=== PATIENT | female | born 1995 | race Caucasian/White ===

== ENCOUNTER 2017-05-11 07:00 | Emergency (ER) | payer OTHER ==
[~2017-05-11] VITALS: Ht 165.1 cm; Wt 85.9 kg
[2017-05-11 07:04] VITALS: BP 143/87; PULSE 90; RESP 18; O2SAT 97
--- NOTE | 2017-05-11 07:06 | ED.REPORT ---
HPI-Allergic Reaction Date of Service May 11, 2017 ED Provider: Dr. Malik Perez MD A 21 year old female presents to the ED with a diffuse urticarial rash that first appeared 3 months ago. Her itchiness and discomfort have been persistent since onset. Affected areas include chest, back, upper and lower extremities. She denies any previous episodes of hives or known allergies. She is also complaining of milky drainage from her left breast that began approx. 1 month ago. She denies redness or swelling in the left breast. Patient has taken Zyrtec and 2 tabs of Benadryl with little relief. Patient denies any dyspnea, tongue swelling, nausea, vomiting, fever or chills. She denies any new exposure to animals. Nursing Notes Stated Complaint: HIVES Chief Complaint: General Complaint Nursing Notes Reviewed: Yes ([employer], [employer] not reconciled) Allergies: Coded Allergies: No Known Allergies (Unverified , 05/11/17) Scheduled Prednisone (PredniSONE) 20 Mg Tablet 40 MG PO DAILY Ranitidine (Ranitidine) 150 Mg Capsule 150 MG PO DAILY General Time Seen by MD: 07:05 Chief Complaint Rash Hx Obtained From: Patient Arrived By: Walk-in Onset Occurred: More than a week ago... (3 months) Symptom Duration: Since onset Progression Since Onset: Constant Location: : Abdomen: Arm left: Arm right: Chest: Leg left: Leg right Quality: Itching Severity: Current: Mild Severity: Maximum: Moderate Associated with: Reports: Itching generalized, Rash/redness all over, Welts/ hives, Denies: Lips swollen, Nausea, Tongue swollen, Vomiting Pertinent Negative: Pt denies other symptoms Recent Healthcare: No recent hospitalization, Recent doctor visit Similar Sx Previous: No Past Medical History Past Medical History None reported. Past Surgical History None reported. Smoking History Current Every Day Smoker Social History Other Social History: Good social support, Local resident Ambulatory Status Independent Review of Systems + milky L breast discharge Constitutional: Denies: Chills, Fever Ears / Nose / Throat: Denies: Tongue swelling Respiratory: Denies: Shortness of breath GI: Denies: Nausea, Vomiting Skin: Reports Itching, Reports Rash Allergy / Immune: Reports: Hives, Itching Complete sys rev & neg: except as marked. Physical Exam Initial Vital Signs Vital Signs (First) Date Time Temp Pulse Resp B/P Pulse Ox O2 Delivery O2 Flow Rate FiO2 05/11/17 07:04 36.6 90 18 143/87 97 Room Air Initial VS: Reviewed Neck: Supple, Non-tender, Full range of motion Extremities: Vascular intact, Neuro intact, No swelling, No tenderness Neurologic: Alert, Oriented, Nonfocal Psychiatric: Mood/affect normal, Behavior normal, Normal thought content General/Constitutional: Awake, Alert, No acute distress Respiratory / Chest: Atraumatic, Breath sounds NL, Breath sounds = bilat, No respiratory distress RESPIRATORY: No active signs of anaphylaxis Cardiovascular: Heart rate NL, Regular rhythm, Heart sounds NL Skin: Atraumatic, Warm, Dry Color / Condition: Positive: Rash present Rash / Lesion Location: Positive: Generalized Rash / Lesion Pattern: Positive: Urticarial Head / Eyes: Atraumatic, Normocephalic, PERRL ENT: Atraumatic, Airway patent, Mucous membranes moist, Pharynx NL Mouth: Negative: Angioedema present..., Lip swelling present, Tongue abnormal Abdomen: Atraumatic, Soft Interpretation & Diagnostics Lab Results Interpretation Result Diagram: 05/11/17 0735 05/11/17 0735 Test 05/11/17 07:35 White Blood Count 8.6th/mm3 (3.8-10.1) Red Blood Count 5.16mil/mm3 (3.90-5.20) Hemoglobin 15.3g/dL (12.0-15.6) Hematocrit 45.9% (35.0-46.0) Mean Corpuscular Volume 89.0fL (81-100) Mean Corpuscular Hemoglobin 29.7pg (27.0-35.0) Mean Corpuscular Hemoglobin Concent 33.3% (32.0-37.0) Red Cell Distribution Width 13.0% (12.3-15.4) Platelet Count 284bil/L (150-400) Neutrophils (%) (Auto) 61.3% (40-74) Lymphocytes (%) (Auto) 28.5% (14-46) Monocytes (%) (Auto) 7.4% (4-12) Eosinophils (%) (Auto) 2.3% (0-5) Basophils (%) (Auto) 0.3% (0-3) Sodium Level 140mEq/L (134-144) Potassium Level 4.6mEq/L (3.5-5.2) Chloride Level 105mEq/L (97-108) Carbon Dioxide Level 19mmol/L (18-29) Blood Urea Nitrogen 11mg/dL (6-20) Creatinine 0.68mg/dL (0.57-1.00) Estimat Glomerular Filtration Rate 155mL/min (>59) Glucose Level 91mg/dL (60-99) Calcium Level 9.0mg/dL (8.5-10.1) Total Bilirubin 0.2mg/dL (0.0-1.2) Aspartate Amino Transf (AST/SGOT) 15U/L (0-50) Alanine Aminotransferase (ALT/SGPT) 11U/L (0-32) Alkaline Phosphatase 63U/L (25-150) Total Protein 7.4g/dL (6.4-8.4) Albumin 4.0g/dL (3.4-5.0) Human Chorionic Gonadotropin, Qual 0.500 (Negative) Hold Cee Top Tube Received (Received) Lab Results Interpretation: CBC nl CMP nl negative Prolactin pending Re-Eval/Medical Decision Med Decision/Clinical Course This is a 21-year-old female presents with ongoing pruritus secondary to urticaria which is not present for the past 3 months. Patient and frustrated, she been taking some intermittent Benadryl, is unaware of any specific allergic or his. She denies prior history of allergies, she denies prior history of urticaria. She has no symptoms of anaphylaxis colon, no lip or tongue swelling , no difficulty breathing, no shortness of breath, no nausea or vomiting. She is on no new medications, but is here today being the severity of the pruritus. She has seen her PCP recommended Benadryl. She is taking low doses. Last dose was yesterday. On exam she does have generalized urticaria, but otherwise appears well. Also has a complaint of some bilateral breast discharge past several months. Her physical exam is otherwise normal. She received a dose of epinephrine given the severity of urticaria with significant improvement. She started on steroids, received Benadryl plus H2 jourdan as well. She is being discharged on a course of steroids and H2 jourdan in addition to the Benadryl. I did have routine labs and a prolactin level drawn but if explaining these were not returned today. Patient will follow-up. I also recommended following up with learning and development director. Patient was frustrated that a definitive cause of urticaria is not possible on testing in the ED, but was discharged in improved condition. Source of Hx: Old records Re-Evaluation/Progress #1: Time of Eval: 07:58 Patient Status: Condition improved Re-Evaluation/Progress Note: Hives still present but discomfort has improved following treatment. Re-Evaluation/Progress #2: Time of Eval: 08:18 Patient Status: Condition improved Re-Evaluation/Progress Note: Patient is rechecked. Symptpoms have improved upon reeval. She is informed of her current and pending results. All questions about the intended treatment plan are addressed. Patient understands and agrees with the plan. Differential Diagnosis: Positive: Urticaria, Negative: Allergic reaction, Angioedema, Angioneurotic edema, Drug reaction, Hemolytic uremic syndrome, Idiopathic thromb purpura, MRSA, Seasonal allergy, Status asthmaticus, Olea-Loc syndrome Counseled Regarding: Diagnosis, Need for follow-up, When/why to return to ED Discharge & Departure Primary Impression: Urticaria Disposition: Home Discharge Condition All VS Reviewed: Yes Condition: Improved Patient Instructions: Allergies (ED), Urticaria (ED) Additional Instructions: 1. An exact cause of the hives (urticaria) is unknown. Given how long they have occuring, it is actually less likely they are from an allergy. 2. However, the next step is to see an learning and development director for further evaluation. Call for an appointment with Dr. Morrow or one of his partners. 3. Take dexamethasone 10mg (rest of syringe) tomorrow - simply empty syringe in to some juice an drink. 4. Take prednisone 40mg once a day for 5 days. 6. I recommend continuing the benadryl 25mg 1-2 tabs up to every 6 hours as needed for itching. 7. I would also take ranitidine 150mg twice a day for the next 10 days. (This is a medicine usually taken for ingestion, but it is a type of anti-histamine that makes the benadryl and other medications work better) 8. We izaiah blood work today that will take a few days for results. Call [phone] for results in a few days. Referrals: NOPCP (PCP) Luis Antonio Nieto MD Scribe Attestation Portions of this note were transcribed by Riccardo Moreno. I, Dr. Perez, personally performed the history, physical exam and medical decision-making; I reviewed and confirmed the accuracy of the information in the transcribed note. Signed by: Riccardo Moreno, 05/11/17. Malik Perez MD May 11, 2017 07:06 RICCARDO MORENO May 11, 2017 07:16
[2017-05-11] MEDS ORDERED: Dexamethasone 20 mg/2 mL Oral Solution PO ONE (07:20)
[2017-05-11] MEDS ORDERED: diphenhydrAMINE 25 mg Capsule PO ONE (07:20)
[2017-05-11] MEDS ORDERED: PRE20 PO (08:17)
[2017-05-11] MEDS ORDERED: RANI150C4 PO (08:17)
[2017-05-11 08:31] LABS: BASOPHILS % (AUTO) 0.3 % (0-3); EOSINOPHILS % (AUTO) 2.3 % (0-5); MONOCYTES % (AUTO) 7.4 % (4-12); Mean Corpuscular Hemoglobin 29.7 pg (27.0-35.0); NEUTROPHILS % (AUTO) 61.3 % (40-74); Platelet Count 284 bil/L (150-400)
[2017-05-11 08:47] VITALS: BP 109/72; PULSE 79; RESP 16; O2SAT 98
== END 2017-05-11 08:50 | disposition home or self-care (01) ==
LOC: SED 07:00
DX: L50.9 Urticaria, unspecified (principal); F17.200 Nicotine dependence, unspecified, uncomplicated
CPT/HCPCS: 36415; 80053; 84146; 84703; 85025; 96372; 99284; J0171